=== PATIENT | male | born 1950 | race Caucasian/White ===

== ENCOUNTER → 2019-11-28 | Outpatient (CLI) | payer MEDICARE, OTHER | END | disposition home or self-care (01) | LOC: SHCH 15:26 | PROVIDERS: ATTEND Internal Medicine Cardiovascular Disease | DX: I48.0 Paroxysmal atrial fibrillation (principal) | CPT/HCPCS: 93306; 93356 ==

== ENCOUNTER 2019-12-13 07:20 | Day surgery (SDC) | payer MEDICARE ==
[2019-12-08 11:18] LABS: BASOPHILS % (AUTO) 0.3 % (0.0-5.0); EOSINOPHILS % (AUTO) 1.4 % (0.0-8.0); HEMATOCRIT 45.6 % (42-54); LYMPHOCYTES % (AUTO) 25.9 % (21.0-51.0); MEAN CORPUSCULAR HEMOGLOBIN 30.9 pg (27.0-33.0); MEAN CORPUSCULAR HGB CONC 33.6 g/dL (32.0-36.0); MEAN CORPUSCULAR VOLUME 92.1 fL (79-99); MONOCYTES % (AUTO) 10.9 % (3.0-13.0); NEUTROPHILS % (AUTO) 60.9 % (40.0-77.0); PLATELET COUNT (AUTO) 248 K/uL (130-400); RED BLOOD CELL COUNT(AUTO) 4.95 MIL/uL (4.50-6.20); RED CELL DISTRIBUTION WIDTH 12.4 % (11.0-15.5)
[2019-12-08 11:27] LABS: APPEARANCE,URINE Clear (CLEAR); BILIRUBIN,URINE Negative (NEGATIVE); COLOR,URINE Yellow (YELLOW); GLUCOSE, URINE (UA) Negative (NEGATIVE); KETONES,URINE Negative (NEGATIVE); LEUKOCYTE ESTERASE ,URINE Negative (NEGATIVE); NITRATE,URINE Negative (NEGATIVE); OCCULT BLOOD,URINE Negative (NEGATIVE); PROTEIN,URINE Negative (NEGATIVE)
[2019-12-08 11:28] LABS: CREATININE 0.8 mg/dL (0.5-1.5); POTASSIUM 4.2 mmol/L (3.5-5.1)
[2019-12-08 11:37] LABS: INR 1.21 (0.85-1.15); PARTIAL THROMBOPLASTIN TIME 35.1 SEC (26.3-35.5)
--- NOTE | 2019-12-12 11:30 | NUR ---
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 AWAITING RESPONSE OR NEW ORDERS.
[2019-12-12 13:07] VITALS: BP 132/68
[2019-12-13] VITALS (14 sets, daily range): BP systolic 93–121; BP diastolic 59–70
[~2019-12-13] VITALS: Ht 175.3 cm; Wt 95.3 kg
[~2019-12-13 07:20] MED LIST: LATA7.5D OP; RIVA20TA PO; TIMO5DRO35 OP
[2019-12-13] MEDS ORDERED: SODIUM CHLORIDE 0.9% 1000ML 1,000 ML IV ONE (09:00)
[2019-12-13] MEDS ORDERED: MIDAZOLAM HCL 1 MG/ML 2ML VIAL ONE (09:01)
[2019-12-13] MEDS ORDERED: FENTANYL CITRATE PF 50 MCG/1 ML 2ML VIAL ONE (09:01)
--- NOTE | 2019-12-13 11:17 | NUR ---
Start procedure was 1025am time out performed, versed 1mg given iv push at 1026am Vital signs stable bp 127/71 hr 81, r 17 and 100 percent at 10liters , fentanyl 50mcg given iv push at 1028am bp 120/70 hr 82 r 16 100 percent at 10 liters, at 1030am adm 1mg versed iv push bp 123/72 hr 85 r 17 , 100 percent at 10 liters, At 1032 adm 50mcg of fentanyl iv push bp 97/80, hr 82 r13 , 100 percent at 10liters, at 1034 adm versed 1mg iv push, pt stable no concerns. AT 1036 adm 50mcg of fentanyl iv push bp 110/68 hr 79 r 14 sating 100 percent 10 liters and 200 Joules shock was adm by Doctor Lucio . Patient was stable. Patient still out of regular Rhythm and per Doctor Lucio 1mg versed was adm iv push bp 107/63, hr 70 sating 99 percent at 10liters r 12 at 1040, Doctor Lucio Shocked patient at 300 jolues (pt stabl, however not in sinus rhythm). At 1042 Doctor Lucio Shocked with 360 joules vitals signs stable , however pt was not in sinus rhythm per md. Recovery start time is 1043 and end time.
[2019-12-14] MEDS ORDERED: SODIUM CHLORIDE 0.9% 500ML 500 ML IV SCH (05:00)
== END 2019-12-13 13:30 | disposition home or self-care (01) ==
LOC: DAH 07:20
PROVIDERS: ATTEND Internal Medicine Cardiovascular Disease
DX: I48.19 Other persistent atrial fibrillation (principal); I45.9 Conduction disorder, unspecified; F41.9 Anxiety disorder, unspecified; M47.814 Spondylosis without myelopathy or radiculopathy, thoracic region; Z79.01 Long term (current) use of anticoagulants; Z98.890 Other specified postprocedural states; Z82.49 Family history of ischemic heart disease and other diseases of the circulatory system; Z83.79 Family history of other diseases of the digestive system; Z98.52 Vasectomy status
CPT/HCPCS: 36415; 71045; 80048; 81003; 85025; 85610; 85730; 92960; 93005 ×3; A4215; A4216; A4221; A4222; A4223 ×3; A4606; A4663; J2250; J3010; J7030; 99152; 99153

== ENCOUNTER 2019-12-28 06:14 | Day surgery (SDC) | payer MEDICARE ==
[2019-12-22 15:10] LABS: BASOPHILS % (AUTO) 0.5 % (0.0-5.0); EOSINOPHILS % (AUTO) 2.5 % (0.0-8.0); HEMATOCRIT 44.1 % (42-54); LYMPHOCYTES % (AUTO) 26.1 % (21.0-51.0); MEAN CORPUSCULAR HEMOGLOBIN 31.3 pg (27.0-33.0); MEAN CORPUSCULAR VOLUME 91.9 fL (79-99); MONOCYTES % (AUTO) 11.7 % (3.0-13.0); NEUTROPHILS % (AUTO) 58.8 % (40.0-77.0); PLATELET COUNT (AUTO) 227 K/uL (130-400); RED CELL DISTRIBUTION WIDTH 12.4 % (11.0-15.5); WHITE BLOOD COUNT (AUTO) 7.5 K/uL (4.8-10.8)
[2019-12-22 15:35] LABS: CREATININE 0.8 mg/dL (0.5-1.5); POTASSIUM 4.3 mmol/L (3.5-5.1)
[2019-12-27 10:05] VITALS: BP 132/76
[~2019-12-28] VITALS: Ht 175.3 cm; Wt 90.4 kg
[2019-12-28] VITALS (10 sets, daily range): BP systolic 98–121; BP diastolic 60–79
[~2019-12-28 06:14] MED LIST changes: +SODIUM CHLORIDE 0.9% 1000ML 1,000 ML IV SCH
--- NOTE | 2019-12-28 06:30 | NUR ---
Day Pt Arrival Pt in room in no apparent distress, at bedside. Pt informed of cardioversion prep, consent signed.
[2019-12-28] MEDS ORDERED: PROP225T3 PO (07:05)
[2019-12-28] MEDS ORDERED: PROPOFOL 10 MG/ML 20ML VIAL IV ONE (08:22)
--- NOTE | 2019-12-28 09:03 | NUR ---
Cardioversion Time out at 902 with Breann LUJAN , Dr Balderas and Primary at bedside. Lidocaine 80 mg ivp and propofol 70 mg given at 09. Once sedation at appropriate level per anesthesia, Dr balderas administered 200J cardioversion at 905. Sinus rythm noted on monitor.
--- NOTE | 2019-12-28 10:00 | NUR ---
Day Pt dc Pt taken to private vehicle in wheelchair after regaining baseline orientation s/p cardioversion with sedation. Spouse and pt given instruction for after care
== END 2019-12-28 10:00 | disposition home or self-care (01) ==
LOC: DAH 06:14
PROVIDERS: ATTEND Internal Medicine Cardiovascular Disease
DX: I48.19 Other persistent atrial fibrillation (principal); Z20.828 Contact with and (suspected) exposure to other viral communicable diseases; F41.9 Anxiety disorder, unspecified; I45.9 Conduction disorder, unspecified; Z79.01 Long term (current) use of anticoagulants; Z72.89 Other problems related to lifestyle; Z98.890 Other specified postprocedural states; Z82.49 Family history of ischemic heart disease and other diseases of the circulatory system; Z79.899 Other long term (current) drug therapy
CPT/HCPCS: 36415; 80048; 85025; 92960; 93005; A4215; A4216; A4221; A4222; A4223 ×3; A4606; A4615; A4663; C9803; J2704; U0003